=== PATIENT | female | born 1955 ===

== ENCOUNTER → 2022-06-10 | Outpatient (CLI) | payer MEDICARE ==
[2022-06-10 13:11] LABS: BASOPHILS ABSOLUTE AUTO 0.04 K/mm3 (0.00-0.23); BASOPHILS PERCENT AUTO 1 % (0-2); EOSINOPHILS ABSOLUTE AUTO 0.12 K/mm3 (0.00-0.68); EOSINOPHILS PERCENT AUTO 3 % (0-6); Hematocrit 42.7 % (33.0-51.0); Hemoglobin 15.3 g/dL (11.5-16.0); IMMATURE GRAN ABSOLUTE AUTO 0.03 K/mm3 (0.00-0.10); IMMATURE GRAN PERCENT AUTO 1 % (0-1); LYMPHOCYTES ABSOLUTE AUTO 1.92 K/mm3 (0.84-5.20); LYMPHOCYTES PERCENT AUTO 39 % (21-46); MONOCYTES ABSOLUTE AUTO 0.35 K/mm3 (0.16-1.47); MONOCYTES PERCENT AUTO 7 % (4-13); Mean Corpuscular HGB 31.9 pg (26.0-34.0); Mean Corpuscular HGB Conc 35.8 g/dL (31.5-36.5); Mean Corpuscular Volume 89 fL (80-100); Mean Platelet Volume 10.5 fL (9.1-12.4); NEUTROPHILS ABSOLUTE AUTO 2.43 K/mm3 (1.96-9.15); NEUTROPHILS PERCENT AUTO 50 % (41-73); Platelet Count 243 K/mm3 (150-400); RDW Coefficient Variation 12.2 % (11.7-14.2); RDW Standard Deviation 39.8 fL (35.1-46.3); White Blood Cell Count 4.89 K/mm3 (4.00-11.30)
[2022-06-10 13:31] LABS: Albumin, Blood 4.1 g/dL (3.4-5.0); Albumin/Globulin Ratio 1.2 (0.8-1.8); Bilirubin, Total 0.6 mg/dL (0.1-1.0); Calcium, Blood 9.8 mg/dL (8.5-10.1); Creatinine, Blood 0.8 mg/dL (0.40-1.00); Free Thyroxine 0.7 ng/dL (0.70-1.60); Globulin, Blood 3.5 g/dL (2.2-4.0); Potassium, Blood 3.6 mmol/L (3.5-5.5); Thyroid Stimulating Hormone 76.545 uIU/mL (0.360-4.800); Total Protein, Blood 7.6 g/dL (6.4-8.2)
== END | disposition home or self-care (01) ==
LOC: LAB SHORT 13:05 → LAB 13:05
PROVIDERS: Chiropractor
DX: E66.9 Obesity, unspecified (principal); E03.9 Hypothyroidism, unspecified; I10 Essential (primary) hypertension
CPT/HCPCS: 80053; 83036; 84439; 84443; 85025

== ENCOUNTER → 2023-09-24 | Outpatient (CLI) | payer OTHER, MEDICARE ==
[2023-09-28 02:57] LABS: CREATININE,URINE - PER 24H 1458 mg/d (500-1400); CREATININE,URINE - PER VOLUME 81 mg/dL; HOURS COLLECTED 24 hr; METANEPHRINE,UR - RATIO TO CRT 69 ug/g CRT (0-300); METANEPHRINE,URINE - PER 24H 101 ug/d (36-229); METANEPHRINE,URN - PER VOLUME 56 ug/L; NORMETANEPHRINE,U - PER VOLUME 224 ug/L; NORMETANEPHRINE,URN - PER 24H 403 ug/d (95-650); NORMETANEPHRINE,URN/CRT RATIO 277 ug/g CRT (0-400); TOTAL VOLUME 1800 mL
[2023-09-28 06:19] LABS: CORTISOL,U FREE - RATIO TO CRT 25.68 ug/g CRT; CORTISOL,URINE FREE - PER 24H 37.4 ug/d (<=45.0); CREATININE,URINE - PER 24H 1458 mg/d (500-1400); CREATININE,URINE - PER VOLUME 81 mg/dL; HOURS COLLECTED 24 hr; TOTAL VOLUME 1800 mL
== END | disposition home or self-care (01) ==
LOC: LAB 10:14 → LAB SHORT 10:14
PROVIDERS: Internal Medicine Endocrinology, Diabetes & Metabolism
DX: I10 Essential (primary) hypertension (principal)
CPT/HCPCS: 82530; 83835

== ENCOUNTER → 2024-01-10 | Outpatient (CLI) | payer OTHER, MEDICARE | END | disposition home or self-care (01) | LOC: LAB 10:54 → LAB SHORT 10:54 | DX: N39.0 Urinary tract infection, site not specified (principal) | CPT/HCPCS: 87077; 87086; 87186 ==

== ENCOUNTER 2024-03-06 11:46 | Day surgery (SDC) | payer OTHER, MEDICARE ==
[~2024-03-06] VITALS: Ht 162.6 cm; Wt 86.7 kg
[~2024-03-06 11:46] MED LIST: Lactated Ringer's 1,000 ML IV ONE; Lidocaine 1%-Epineph 1:100000 20 ML MDV ONE
[2024-03-06] MEDS ORDERED: Midazolam HCl 1MG / ML 2ML Vial ONE (13:03)
[2024-03-06] MEDS ORDERED: FentaNYL Citrate 50 MCG/ML 2 ML Injection ONE (13:03)
[2024-03-06] MEDS ORDERED: propofoL 20 ML IV ONE (13:03)
[2024-03-06] MEDS ORDERED: Bupivacaine 0.5% HCl 5 MG/ML 30MLVIAL ONE (13:06)
--- NOTE | 2024-03-06 13:34 | NUR ---
03/06/24 1334 Mraixa Forrest PATIENT IN ROOM AT 1332, ANESTHESIA IN ROOM AT 1334
[2024-03-06] MEDS ORDERED: LEVSOD150 (13:44)
[2024-03-06] MEDS ORDERED: Lactated Ringer's 1,000 ML IV ONE (13:55)
[2024-03-06] MEDS ORDERED: CeFAZolin Sodium 2,000 MG VIAL ONE (14:02)
[2024-03-06] MEDS ORDERED: Ondansetron HCl 2 MG / ML 2ML Vial ONE (14:22)
[2024-03-06] MEDS ORDERED: Dexamethasone Sod Phos 10 MG/ML 1ML VIAL ONE (14:22)
[2024-03-06] MEDS ORDERED: Ketorolac Tromethamine 30mg Vial ONE (15:08)
--- NOTE | 2024-03-06 15:35 | NUR ---
03/06/24 1535 NINA UNGER PATIENT CYANOTIC AND DUSKY UPON ARRIVAL TO PACU. PLACED ON 15L FACE TENT, ANESTHESIA AT BEDSIDE. CURRENTLY AT 100% ON 15L FACE TENT. TRIAL TO 5L O2 VIA FACETENT
[2024-03-06 16:11] VITALS: BP 145/79
[2024-03-06] MEDS ORDERED: HYDROcodone 5-APAP 325 TAB ONE (16:23)
--- NOTE | 2024-03-06 16:51 | NUR ---
03/06/24 1651 Preethi Angulo ARM SLING GIVEN PRIOR TO DISCHARGE DUE TO NERVE BLOCK.
== END 2024-03-06 16:52 | disposition home or self-care (01) ==
LOC: ORSCSDS 11:46
PROVIDERS: Orthopaedic Surgery
PROC: 0PSJ04Z Reposition Left Radius with Internal Fixation Device, Open Approach (ICD-10-PCS; principal; 2024-03-06 14:00)
DX: S52.572A Other intraarticular fracture of lower end of left radius, initial encounter for closed fracture (principal); W01.0XXA Fall on same level from slipping, tripping and stumbling without subsequent striking against object, initial encounter; G47.33 Obstructive sleep apnea (adult) (pediatric); E66.9 Obesity, unspecified; Z68.33 Body mass index [BMI] 33.0-33.9, adult; Z79.899 Other long term (current) drug therapy
CPT/HCPCS: 82947; A9270; C1713; C1889; J0690; J1100; J1885; J2250; J2405; J2704; J3010; J7120